=== PATIENT | female | born 1965 | race Native Hawaiian/Other Pacific Islander ===

== ENCOUNTER 2018-07-10 17:36 | Emergency (ER) | payer BC ==
[~2018-07-10] VITALS: Ht 170.2 cm; Wt 99.8 kg
[2018-07-10 19:12] VITALS: BP 156/84; TEMP 98.5
== END 2018-07-10 19:35 | disposition home or self-care (01) ==
LOC: ED 17:36
DX: M79.605 Pain in left leg (principal); M25.552 Pain in left hip; S79.922A Unspecified injury of left thigh, initial encounter; W01.0XXA Fall on same level from slipping, tripping and stumbling without subsequent striking against object, initial encounter
CPT/HCPCS: 96372; 99283; J2270

== ENCOUNTER 2019-09-06 10:41 | Outpatient (CLI) | payer BC | END 2019-09-06 19:14 | disposition home or self-care (01) | LOC: MAMMO 10:41 | DX: Z12.31 Encounter for screening mammogram for malignant neoplasm of breast (principal) ==

== ENCOUNTER 2020-09-26 08:28 | Outpatient (CLI) | payer BC | END 2020-09-26 21:42 | disposition home or self-care (01) | LOC: MAMMO 08:28 | PROVIDERS: ATTEND Obstetrics & Gynecology | DX: Z12.31 Encounter for screening mammogram for malignant neoplasm of breast (principal) ==

== ENCOUNTER 2022-03-21 08:22 | Outpatient (CLI) | payer BC | END 2022-03-21 20:49 | disposition home or self-care (01) | LOC: MAMMO 08:22 | PROVIDERS: ATTEND Obstetrics & Gynecology | DX: Z12.31 Encounter for screening mammogram for malignant neoplasm of breast (principal) ==

== ENCOUNTER 2023-02-27 17:31 | Emergency (ER) | payer BC ==
[~2023-02-27] VITALS: Ht 172.7 cm; Wt 99.8 kg
[2023-02-27 17:36] VITALS: TEMP 98.7
[2023-02-27 18:03] LABS: PLATELET COUNT 322 K/uL (152-353)
[2023-02-27 18:18] LABS: POTASSIUM 3.4 mmol/L (3.6-5.2)
[2023-02-27 20:10] VITALS: BP 122/89
== END 2023-02-27 20:10 | disposition home or self-care (01) ==
LOC: ED 17:31
PROVIDERS: Family Medicine
DX: E87.6 Hypokalemia (principal); R11.2 Nausea with vomiting, unspecified
CPT/HCPCS: 80053; 85027; 87635; 87651; 96374; 96375; 99284; J0360; J1885; J2405; U0003